=== PATIENT | male | born 1990 | race Hispanic/Latino ===

== ENCOUNTER 2022-01-10 13:06 | Emergency (ER) | payer OTHER ==
[2022-01-10] MEDS ORDERED: predniSONE 20 MG TAB ONE (13:32)
[2022-01-10] MEDS ORDERED: Ketorolac Tromethamine 30 MG/ML VIAL ONE (13:32)
== END 2022-01-10 14:00 | disposition home or self-care (01) ==
LOC: BURERS 13:06
DX: M54.50 Low back pain, unspecified (principal)
CPT/HCPCS: 96372; 99283; J1885; J7512

== ENCOUNTER 2022-11-28 11:46 | Emergency (ER) | payer OTHER, SELFPAY ==
[2022-11-28] MEDS ORDERED: Ibuprofen 200 MG TAB ONE (12:48)
[2022-11-28] MEDS ORDERED: Bacitracin 1 PK ONE (12:48)
== END 2022-11-28 12:57 | disposition home or self-care (01) ==
LOC: BURERS 11:46
DX: S90.32XA Contusion of left foot, initial encounter (principal); W20.8XXA Other cause of strike by thrown, projected or falling object, initial encounter